=== PATIENT | male | born 1985 | race American Indian/Alaskan Native ===

== ENCOUNTER 2020-01-10 06:07 | Emergency (ER) | payer MEDICAID ==
[2020-01-10 07:30] VITALS: BP 179/123
--- NOTE | 2020-01-10 08:49 | Emergency Department Report ---
<APRYL OBREGON - Last Filed: 01/10/20 08:44> ED ENT HPI - General Chief complaint: Dental/Oral Stated complaint: LF FACIAL SWELLING Time Seen by Provider: 01/10/20 08:24 Source: patient Mode of arrival: Ambulatory Limitations: No Limitations - History of Present Illness Initial comments: 34-year-old F [place] male presents emergency department complaining of a 4-day history of left facial swelling with numbness and tenderness worse with palpation chewing resulting in a decrease ability to open his mouth. Reports no nausea, no vomiting, no fevers, chills, no sweats, no chest pain or palpitation. No hemoptysis no hematemesis no hematochezia. -: Gradual Location: tooth # Severity: mild, moderate Quality: dull Consistency: constant Improves with: none Worsens with: none, eating Context- Dental: history of dental caries, poor dental care Associated Symptoms: toothache. denies: sore throat, tinnitus, hearing loss, discharge from ear, rhinorrhea - Related Data Previous Rx's Medication Instructions Recorded Last Taken Type Amoxicillin [Amoxicillin TAB] 875 mg PO BID #20 tablet 01/10/20 Unknown Rx Chlorhexidine Mouthwash [Peridex] 15 ml MM BID #1 bottle 01/10/20 Unknown Rx Lidocaine Viscous 2% 5 ml MM Q3H PRN #120 udc 01/10/20 Unknown Rx ED Dental HPI - General Chief complaint: Dental/Oral Stated complaint: LF FACIAL SWELLING Time Seen by Provider: 01/10/20 08:24 Source: patient Mode of arrival: Ambulatory Limitations: No Limitations - Related Data Previous Rx's Medication Instructions Recorded Last Taken Type Amoxicillin [Amoxicillin TAB] 875 mg PO BID #20 tablet 01/10/20 Unknown Rx Chlorhexidine Mouthwash [Peridex] 15 ml MM BID #1 bottle 01/10/20 Unknown Rx Lidocaine Viscous 2% 5 ml MM Q3H PRN #120 udc 01/10/20 Unknown Rx ED Review of Systems Comment: All other systems reviewed and negative ED Past Medical Hx - Past Medical History Previous Medical History?: No - Surgical History Past Surgical History?: Yes Additional Surgical History: Leg - Social History Smoking Status: Current Every Day Smoker Substance Use Type: Alcohol, Marijuana - Medications Home Medications: Home Medications Medication Instructions Recorded Confirmed Last Taken Type Amoxicillin [Amoxicillin TAB] 875 mg PO BID #20 tablet 01/10/20 Unknown Rx Chlorhexidine Mouthwash [Peridex] 15 ml MM BID #1 bottle 01/10/20 Unknown Rx Lidocaine Viscous 2% 5 ml MM Q3H PRN #120 udc 01/10/20 Unknown Rx ED Physical Exam - General Limitations: No Limitations General appearance: alert, in no apparent distress - Head Head exam: Present: atraumatic, normocephalic - Eye Eye exam: Present: normal appearance, PERRL, EOMI Pupils: Present: normal accommodation - ENT ENT exam: Present: normal exam, normal orophraynx, mucous membranes moist, TM's normal bilaterally, other (Swelling to the left oral cavity with obvious abscess present. No drainage no bleeding. Tongue and uvula are midline airway is patent normal voice. Lymphadenopathy to the left tonsillar region is noted as well.) - Neck Neck exam: Present: normal inspection, full ROM - Respiratory Respiratory exam: Present: normal lung sounds bilaterally. Absent: respiratory distress, wheezes, rales, chest wall tenderness, accessory muscle use - Cardiovascular Cardiovascular Exam: Present: regular rate, normal rhythm. Absent: systolic murmur, diastolic murmur, rubs, gallop - GI/Abdominal GI/Abdominal exam: Present: soft, normal bowel sounds. Absent: distended, tenderness, guarding - Rectal Rectal exam: Present: deferred - Extremities Exam Extremities exam: Present: normal inspection, normal capillary refill - Back Exam Back exam: Present: normal inspection. Absent: CVA tenderness (R), CVA tenderness (L) - Neurological Exam Neurological exam: Present: alert, oriented X3, CN II-XII intact, normal gait - Psychiatric Psychiatric exam: Present: normal affect, normal mood - Skin Skin exam: Present: warm, dry, intact, normal color. Absent: rash ED Medical Decision Making - Medical Decision Making 34-year-old male with hypertension blood pressure is 180/110 5 them multiple x10 in the ED he remains asymptomatic. Discussed with him at nausea and the importance of following up with provider for management of this hypertension.. Also provided some instructions in his his discharge plan. Is been advised to return to emergency department should he begin to develop any hypertensive symptoms. Currently reports being on no therapy ED Disposition Clinical Impression: Hypertension, Oral abscess Disposition: TO HOME OR SELFCARE Is pt being admited?: No Does the pt Need Aspirin: No Condition: Stable Instructions: Dental Abscess (ED), Dental Caries (ED), DASH Eating Plan (ED), H ypertension (ED), Toothache (ED) Prescriptions: Amoxicillin [Amoxicillin TAB] 875 mg PO BID #20 tablet Lidocaine Viscous 2% 5 ml MM Q3H PRN #120 udc PRN Reason: Pain, Moderate (4-6) Chlorhexidine Mouthwash [Peridex] 15 ml MM BID #1 bottle Referrals: [facility] [Provider Group] - 3-5 Days (for your hypertension ) [facility] [Outside] - 3-5 Days (for your oral infection) <SARAH WILEY - Last Filed: 01/10/20 13:57> ED Review of Systems ROS: Stated complaint: LF FACIAL SWELLING Other details as noted in HPI ED Course Vital Signs 01/10/20 01/10/20 01/10/20 06:12 07:28 07:30 Temperature 98.2 F Pulse Rate 102 H 82 Respiratory 16 18 Rate Blood Pressure 183/110 179/123 O2 Sat by Pulse 99 99 99 Oximetry - Reevaluation(s) Reevaluation #1: Patient was called to emphasized the importance of management of his severe hypertension. I left him our number. He was advised that I can call him in a prescription and to follow-up at [facility] on Sunday. 01/10/20 13:56 Critical care attestation.: If time is entered above; I have spent that time in minutes in the direct care of this critically ill patient, excluding procedure time. ED Disposition Is pt being admited?: No Does the pt Need Aspirin: No Time of Disposition: 13:57
== END 2020-01-10 08:35 | disposition home or self-care (01) ==
LOC: ED 06:07
DX: I10 Essential (primary) hypertension (principal); K12.2 Cellulitis and abscess of mouth; F17.210 Nicotine dependence, cigarettes, uncomplicated; F12.10 Cannabis abuse, uncomplicated
CPT/HCPCS: 99282

== ENCOUNTER 2020-12-17 18:49 | Emergency (ER) | payer MEDICAID | END 2020-12-17 20:07 | disposition left against medical advice (07) | LOC: ED 18:49 | DX: J02.9 Acute pharyngitis, unspecified (principal); Z53.21 Procedure and treatment not carried out due to patient leaving prior to being seen by health care provider ==